=== PATIENT | male | born 1960 | race Caucasian/White ===

== ENCOUNTER 2022-12-29 11:01 | Outpatient (RCR) | payer MEDICARE, SELFPAY ==
--- NOTE | 2022-12-29 12:06 | PTOPEVAL1 ---
Assessment and note entered by Saskia Lance DPT Evaluation Information Assessment Status Evaluation Diagnosis R hip pain Onset 10/23/22 Subjective Information Patient reports he had a R total hip replacement on 10/23/22. He reports he also he a torn ligament that was reattached to the bone that he feels is causing the most pain. He reports he had 4 back surgeries (fusion L2-L5) total and the most recent about 4 months prior to the hip replacement. He reports difficulty with weight bearing on the R LE . He reports he can not walk without a cane or a walker, and has difficulty with going up/down steps. He is now on disability and no longer working. Reported Pain Level Pain Score 4: Self Report Assessment PT Clinical Summary Patient is a 62 year old male who presents to PT with R hip pain following R hip replacement on 10/23. Patient demonstrates decreased R LE flexibility, decreased R LE strength and impaired gait impairing his ability to ambulate and bear weight on the R LE. He would benefit from skilled PT to address impairments with focus on R hip strength to decrease pain and improve function. Plan of Care Interventions Electrical Stimulation,Gait Training,Hot Pack/Cold Pack,Manual Therapy,Neuro Re-education,Patient/ Caregiver Educati,Therapeutic Activities, Therapeutic Exercise PT Services Indicated Yes Treatment Frequency and 3x week for 6 visits and then 2x week for 12 Duration visits These treatments will address the objective and functional deficits as defined above. The patient will be advanced safely and appropriately in order for the patient to progress towards his/her prior level of function. Additional exercises will be introduced and as well as a comprehensive home exercise program upon discharge, if needed, ?to ensure carryover of functional gains achieved in the clinic. This treatment plan has been reviewed and agreement upon by the patient.
--- NOTE | 2023-01-23 14:47 | PTOPREEVAL ---
Assessment and note entered by Saskia Lance DPT Evaluation Information Assessment Status Progress Diagnosis R hip pain Onset 10/23/22 Subjective Information Patient reports he has noticed improvment since starting PT. He reports he can walk farther before onset of pain and is able to walk short distnaces with no AD. He continues to report he has difficulty with ambulating prolonged distances at this time. Reported Pain Level Pain Score 5: Self Report Assessment PT Clinical Summary Andrew has been seen for 10 visits from 12/29/22-09/05 with good improvements in R hip strength and flexibility. Andrew reports improved ability to walk prolonged distance but does report he continues to be limited by pain. He demonstrates hip drop during stance phase of gait cycle. He would benefit from continued skilled PT to address remaining impairments and return to PLOF. Plan of Care Interventions Electrical Stimulation,Gait Training,Hot Pack/Cold Pack,Manual Therapy,Neuro Re-education,Patient/ Caregiver Educati,Therapeutic Activities, Therapeutic Exercise PT Services Indicated Yes Treatment Frequency and continue per current POC Duration These treatments will address the objective and functional deficits as defined above. The patient will be advanced safely and appropriately in order for the patient to progress towards his/her prior level of function. Additional exercises will be introduced and as well as a comprehensive home exercise program upon discharge, if needed, ?to ensure carryover of functional gains achieved in the clinic. This treatment plan has been reviewed and agreement upon by the patient.
--- NOTE | 2023-04-06 13:49 | PCPTNOTE ---
Patient discharged due to not returning after calling to report he re injured his hip
== END 2023-02-13 20:00 | disposition home or self-care (01) ==
LOC: CHSPT 11:01
PROVIDERS: PCP Family Medicine
DX: M70.61 Trochanteric bursitis, right hip (principal); M54.16 Radiculopathy, lumbar region; Z98.890 Other specified postprocedural states
CPT/HCPCS: 97014; 97110; 97140; 97161; 97530; G0283